=== PATIENT | female | born 1960 | race Caucasian/White ===

== ENCOUNTER 2017-02-16 21:02 | Emergency (ER) | payer BC ==
[~2017-02-16] VITALS: Ht 162.6 cm; Wt 63.5 kg
[~2017-02-16 21:02] MED LIST: ATV/2 PO; BUPRTAB51 PO; QUET1TAB91 PO; SUMA50TA15 PO
[2017-02-16 21:06] VITALS: BP 114/79; PULSE 97; TEMP 36.5; O2SAT 93; Ht 162.6 cm; Wt 63.5 kg
[2017-02-16] MEDS ORDERED: BSP/5 PO (21:22)
[2017-02-16] MEDS ORDERED: QUET5TAB PO (21:23)
[2017-02-16] MEDS ORDERED: FLX/5 PO (21:23)
[2017-02-16] MEDS ORDERED: WLLXL300 PO (21:23)
[2017-02-16] MEDS ORDERED: ATV2 PO (21:23)
[2017-02-16] MEDS ORDERED: OXYC-57 PO (21:23)
--- NOTE | 2017-02-16 21:43 | DIAGNOSTIC IMAGING REPORT ---
LEFT FOURTH FINGER RADIOGRAPHS CLINICAL HISTORY: Left fourth finger pain. COMPARISON: None FINDINGS: There is an acute displaced fracture of the base of the distal phalanx of the left fourth finger with palmar tilt of the distal component. There is intra-articular extension of fracture. No additional fractures are present. There is a ring on the fourth finger. IMPRESSION: Acute moderately displaced fracture of the base of the distal phalanx of the left fourth finger with intra-articular extension. Electronically signed by: Leonard Mei M.D. 02/16/2017 9:42 PM Dictated Date/Time: 02/16/2017 9:40 PM
[2017-02-16] MEDS ORDERED: XYLOCAINE 1%/SOD BICARB 20 ML VIAL INFIL ONE (21:55)
--- NOTE | 2017-02-16 22:39 | EMERGENCY ROOM VISIT NOTE ---
History First contact with patient: 21:16 Chief Complaint: FINGER PAIN Stated Complaint: FINGER PAIN, LEFT HAND, 4TH DIGIT History of Present Illness The patient is a 56 year old female who presents to the Emergency Room with complaints of an injury to her left ring finger well trying to move a box spring , and pinching her finger. The patient reports ability to move the joint, and rates her discomfort a 7 out of 10. The patient is [id number]. She denies any paresthesias or numbness of the tip of the left ring finger. Review of Systems 10 system review was performed and was negative except for pertinent positives and negatives as indicated in history of present illness Past Medical/Surgical History Medical Problems: (1) H/O unilateral nephrectomy Surgical Problems: (1) H/O: hysterectomy Family History Patient reports no known family medical history. Social History Smoking Status: Never Smoker Alcohol Use: none Drug Use: none Marital Status: Housing Status: lives with significant other Occupation Status: employed Current/Historical Medications Scheduled Bupropion HCl (Bupropion HCl Xl), 300 MG PO QPM Buspirone HCl (Buspirone HCl), 5 MG PO BID Quetiapine Fumarate (Seroquel), 50 MG PO QPM Scheduled PRN Cyclobenzaprine HCl (Cyclobenzaprine HCl), 5 MG PO TID PRN for Muscle Spasm Lorazepam (Lorazepam), 2 MG PO TID PRN for Anxiety Oxycodone/Acetaminophen 5MG/325MG (Percocet 5MG/325MG), 1 TABLET PO Q6H PRN for Pain Physical Exam Vital Signs Date Time Temp Pulse Resp B/P (MAP) Pulse Ox O2 Delivery O2 Flow Rate FiO2 02/16/17 21:06 36.5 97 18 114/79 93 Physical Exam CONSTITUTIONAL: Healthy and well nourished. Alert and oriented X 3 with positive affect. HEENT: Normocephalic, atraumatic. Pupils equal, round and reactive. NECK: Full active range of motion without discomfort. MUSCULOSKELETAL: Examination of the left fourth finger does not show any open wounds. The DIP is in a flexed deformity, and cannot be easily extended period she has no tenderness to palpation of the PIP joint. Capillary refill is less than 2 seconds. A ring is noted on the left ring finger. INTEGUMENTARY: No rash or other significant dermatologic conditions noted. NEUROLOGIC: Left fourth fingertip is sensory intact. Medical Decision & Procedures ER Provider Diagnostic Interpretation: My interpretation of left ring finger x-rays shows an avulsion/displaced fracture at the dorsal base of the distal phalanx, with intra-articular extension. No dislocation is appreciated. Radiologist report is as follows: LEFT FOURTH FINGER RADIOGRAPHS CLINICAL HISTORY: Left fourth finger pain. COMPARISON: None FINDINGS: There is an acute displaced fracture of the base of the distal phalanx of the left fourth finger with palmar tilt of the distal component. There is intra-articular extension of fracture. No additional fractures are present. There is a ring on the fourth finger. IMPRESSION: Acute moderately displaced fracture of the base of the distal phalanx of the left fourth finger with intra-articular extension. Procedure Patient provided verbal consent for reduction under digital block anesthesia because of intolerable discomfort. Using buffered 1% lidocaine without epinephrine, good digital block anesthesia was administered. After allowing adequate time for reduction, the fingertip/DIP joint was extended with a palpable pop in good alignment. The finger was splinted in a fully extended position. ED Course Patient history and physical exam were performed. Nurse's notes were reviewed. Vital signs were reviewed and were normal. X-rays of the left ring finger shows a fracture at the dorsal base of the distal phalanx. I was unable to straighten the finger without digital block anesthesia. After reduction, a metal splint was applied with the finger in full extension. The patient was encouraged to intermittently apply ice and elevate hand for swelling and pain. Ibuprofen and Tylenol for baseline pain relief. The patient reports that she does have Percocet at home for other medical conditions. The patient reports that she will follow-up with Dr. Chaparro for further management. The patient was happy with plan of care, voiced understanding of all discharge instructions , and denied any pain at the conclusion of my exam. Medical Decision Blood Pressure Screening Patient's blood pressure: Normal blood pressure Impression Primary Impression: Fracture of phalanx of left ring finger Departure Information Referrals Adam Dahl D.OBrennan (PCP) Patient Instructions My [facility] Problem Qualifiers Primary Impression: Fracture of phalanx of left ring finger Encounter type: initial encounter Fracture type: closed Phalanx: distal Fracture alignment: displaced Qualified Codes: S62.635A - Displaced fracture of distal phalanx of left ring finger, initial encounter for closed fracture
== END 2017-02-16 22:26 | disposition home or self-care (01) ==
LOC: C.EDB 21:03 → C.EDD 22:26
DX: S62.635A Displaced fracture of distal phalanx of left ring finger, initial encounter for closed fracture (principal); Z79.899 Other long term (current) drug therapy; W23.0XXA Caught, crushed, jammed, or pinched between moving objects, initial encounter

== ENCOUNTER 2017-07-22 10:36 | Emergency (ER) | payer BC, OTHER ==
[~2017-07-22] VITALS: Ht 162.6 cm; Wt 66.5 kg
[~2017-07-22 10:36] MED LIST changes: -ATV/2 PO; +ATV2 PO; +BSP/5 PO; -BUPRTAB51 PO; +FLX/5 PO; +OXYC-57 PO; -QUET1TAB91 PO; +QUET5TAB PO; -SUMA50TA15 PO; +WLLXL300 PO
[2017-07-22 10:41] VITALS: TEMP 36.3; Ht 162.6 cm; Wt 66.5 kg
[2017-07-22] MEDS ORDERED: ACETAMINOPHEN 325 MG TAB PO STA (11:04)
--- NOTE | 2017-07-22 11:31 | DIAGNOSTIC IMAGING REPORT ---
CT OF THE HEAD WITHOUT CONTRAST CLINICAL HISTORY: Headache following fall. COMPARISON STUDY: No previous studies for comparison. CT DOSE: 537.48 mGy.cm TECHNIQUE: Helical axial images of the head were obtained without IV contrast. Automated exposure control was utilized for the study. A dose lowering technique was utilized adhering to the principles of ALARA. FINDINGS: No acute intracranial hemorrhage, midline shift or mass effect is present. Ventricular system is normal. Basilar cisterns are patent. There are no extra-axial collections. Castaneda-white differentiation is maintained. There is no calvarial fracture. Visualized portions of the sinuses and mastoid air cells are clear. IMPRESSION: 1. No acute intracranial findings. 2. No calvarial fracture. Electronically signed by: Leonard Mei M.D. 07/22/2017 11:30 AM Dictated Date/Time: 07/22/2017 11:27 AM
[2017-07-22 11:44] VITALS: BP 131/81; PULSE 83; O2SAT 97
--- NOTE | 2017-07-22 15:50 | EMERGENCY ROOM VISIT NOTE ---
ED Visit Note First contact with patient: 10:44 Chief Complaint: I fell and hit the back of my head. History of Present Illness: Ms. Dempsey is a 57-year-old white female who ambulates into the ED complaining of a possible head injury. Patient reports approximately 2-3 hours ago she slipped while getting in her car and struck the back of her head on the ground. She reports before the fall she was not experiencing any lightheaded and dizziness, the time of the fall she did not have a loss of consciousness. Since the injury she reports she has been having a headache. She plates this in the occipital area. She describes it as a pressure and achy sensation. She rates her discomfort 5/10. Her pain is nonradiating. Her pain worsens with palpation of the scalp. She has not taken a medication for pain prior to arrival at the hospital. Associated with her pain she reports mild blurry vision, difficulty concentrating and nausea without vomiting. She denies dizziness, lightheadedness, hearing changes, difficulty speaking, difficulty swallowing, difficulty in voiding/coordinating by movements, neck pain, back pain, chest pain, shortness of breath, abdominal pain, extremity weakness/numbness/tingling. Review of Systems: As noted above in history of present illness. All body systems were reviewed and found to be negative as noted above. Past Medical History: Pancreatitis, terminal ileitis, migraine headaches, anxiety, depression, status post hysterectomy, unspecified shoulder surgery and left sided kidney donor. Current Medications: Medications Dose Route/Sig Max Daily Dose Days Date Category Percocet 5MG/325MG (Oxycodone/Acetaminophen) Tab 1 Tablet PO Q6H PRN 02/16/17 Reported Lorazepam 2 Mg Tab 2 Mg PO TID PRN 02/16/17 Reported Bupropion HCl Xl (Bupropion HCl) 300 Mg Tabcr 300 Mg PO QAM 02/16/17 Reported Buspirone HCl 5 Mg Tab 10 Mg PO BID 02/16/17 Reported Allergies to Medications: Patient denies. Social History: Patient is currently employed; she feels safe in her home environment; she denies tobacco and alcohol use. Physical Examination: Vital Signs: Date Time Temp Pulse Resp B/P (MAP) Pulse Ox O2 Delivery O2 Flow Rate FiO2 07/22/17 11:44 83 16 131/81 97 1/16/18 10:41 36.3 85 18 134/84 98 Room Air GENERAL: 57-year-old female in mild to moderate distress due to fall and symptoms, nontoxic-appearing, afebrile and hemodynamically stable. NEUROLOGICAL: Awake, alert and oriented to person, place and time. Answering questions appropriately and following commands. Normal gait. Good hand eye coordination. Cranial nerves II through XII grossly intact. Romberg test negative but unsteady. Pronator drift test negative. Good short-term and long- term recall. SKIN: Warm, dry and pink. Soft tissue contusion to the occipital scalp. HEENT: Atraumatic and normocephalic. Skull: No bony deformity, depressions. Mild tenderness in the area of her contusion. No raccoon's eyes or olivares signs. No drainage from the ears and air; no hemotympanum. Face: No bony tenderness, swelling or ecchymosis. PERRLA. EOMI without nystagmus. No malocclusion. No intraoral trauma. Airway patent. Speech normal. No lymphadenopathy. Trachea midline. No jugular venous distention. BACK: No tenderness over the bony cervical and thoracic spine. Full range of motion of the cervical spine. EXTREMITIES: Moves all extremities well on command and with purpose. All distal neurovascular statuses are intact and equal bilaterally. Upper Extremities: 4/5 muscle strength in all movements of the shoulder, elbows, forearms, wrists and hands. ED Course: Patient is assessed as noted above. Patient's medication list was reviewed. I did have a lengthy conversation about the risks and benefits of CT scan and patient requested a CT scan. Patient was given 650 mg of acetaminophen by mouth for pain. Head CT: Was reviewed by myself and read by the radiologist showing no acute intracranial findings or skull fractures. Patient was educated about today's findings and instructed on her treatment plan ; she verbalizes understanding and agreement with this plan. Clinical Impression: Closed head injury. Fall. Decision-Making: My differential diagnosis I considered syncope, arrhythmia, concussion, skull fracture, intercranial bleed and other causes. Disposition: Patient discharged home in stable condition; prior to departure she was reassessed and subjectively reported she was feeling better and rated her discomfort 2/10. Plan: Comfort measures were discussed with the patient including rest, no strenuous activity and the use of acetaminophen. Patient was encouraged to watch for signs of worsening head injury and avoid alcohol use. Patient was signed off of work for 2 days. Patient is encouraged to follow-up with her primary care provider for recheck in 2-3 days. Patient was encouraged return ED for any signs of worsening head injury or any new/concerning symptoms.
== END 2017-07-22 11:45 | disposition home or self-care (01) ==
LOC: C.EDB 10:38 → C.EDD 11:45
DX: S09.90XA Unspecified injury of head, initial encounter (principal); W19.XXXA Unspecified fall, initial encounter; K86.1 Other chronic pancreatitis; F41.8 Other specified anxiety disorders; Z90.710 Acquired absence of both cervix and uterus; Z98.890 Other specified postprocedural states

== ENCOUNTER 2017-07-24 07:20 | Emergency (ER) | payer OTHER ==
[~2017-07-24] VITALS: Ht 162.6 cm; Wt 65.0 kg
[~2017-07-24 07:20] MED LIST changes: -FLX/5 PO; -QUET5TAB PO
[2017-07-24 07:26] VITALS: TEMP 36.8; Ht 162.6 cm; Wt 65.0 kg
--- NOTE | 2017-07-24 07:47 | EMERGENCY ROOM VISIT NOTE ---
History Report prepared by Bel: Shannan Hamilton Under the Supervision of: Dr. Debbie Stone M.D. First contact with patient: 07:45 Chief Complaint: HEAD PAIN Stated Complaint: HEAD PAIN History of Present Illness The patient is a 57 year old female who presents to the Emergency Room with complaints of Past Medical & Surgical Medical Problems: (1) H/O unilateral nephrectomy Surgical Problems: (1) H/O: hysterectomy Family History Patient reports no known family medical history. Social History Smoking Status: Former Smoker Alcohol Use: none Drug Use: none Marital Status: Housing Status: lives with significant other Occupation Status: employed Current/Historical Medications Scheduled Bupropion HCl (Bupropion HCl Xl), 300 MG PO QAM Buspirone HCl (Buspirone HCl), 10 MG PO BID Scheduled PRN Lorazepam (Lorazepam), 2 MG PO TID PRN for Anxiety Oxycodone/Acetaminophen 5MG/325MG (Percocet 5MG/325MG), 1 TABLET PO Q6H PRN for Pain Allergies Coded Allergies: No Known Allergies (Unverified , 07/22/17) Physical Exam Vital Signs Date Time Temp Pulse Resp B/P (MAP) Pulse Ox O2 Delivery O2 Flow Rate FiO2 07/24/17 07:26 36.8 94 18 120/77 95 Room Air Departure Information Referrals Adam Dahl, D.OBrennan (PCP) Patient Instructions My [facility]
--- NOTE | 2017-07-24 08:16 | DIAGNOSTIC IMAGING REPORT ---
HEAD WITHOUT CONTRAST (CT) CT DOSE: 537.48 mGy.cm HISTORY: Headache. Mental status change. CHI, increasing NAYLOR, CT 2 days ago, r/o bleed TECHNIQUE: Multiaxial CT images of the head were performed without the use of intravenous contrast. A dose lowering technique was utilized adhering to the principles of ALARA. Comparison: 2017 Findings: The paranasal sinuses and mastoid air cells are clear. The calvarium and skull base are intact. The ventricles and sulci are within normal limits. There is no mass, hematoma, midline shift, or acute infarct. Impression: No acute intracranial abnormality. The above report was generated using voice recognition software. It may contain grammatical, syntax or spelling errors. Electronically signed by: Jeremiah Guerrier M.D. 07/24/2017 8:15 AM Dictated Date/Time: 07/24/2017 8:06 AM
[2017-07-24] MEDS ORDERED: KETOROLAC TROMETHAMINE 30 MG/ML VIAL IV STA (08:32)
[2017-07-24] MEDS ORDERED: ONDANSETRON INJ 2 MG/ML 2 ML VIAL IV STA (08:32)
[2017-07-24] MEDS ORDERED: ACET-1175 PO (08:34)
[2017-07-24] MEDS ORDERED: SODIUM CHLORIDE 0.9% 1000ML 1,000 ML IV ONE (08:45)
[2017-07-24] MEDS ORDERED: HYDROmorphone INJ 0.5 MG/0.5 ML SYR IV STA (09:50)
[2017-07-24 11:30] VITALS: BP 117/64; PULSE 85; O2SAT 94
--- NOTE | 2017-07-25 13:00 | EMERGENCY ROOM VISIT NOTE ---
ED Visit Note First contact with patient: 07:46 Chief Complaint: Head injury. History of Present Illness: Ms. Dempsey is a 57-year-old white female who ambulates into the ED complaining of a possible head injury. Should be noted I evaluated Ms. Dempsey 2 days ago following a fall and she was diagnosed with a closed head injury after a normal physical examination and CT of her head. She was discharged home and instructed to return to the ED for worsening head injury symptoms. Patient reports the day after her fall she was feeling slightly better in the morning but then late afternoon and evening and this morning she started feeling worse. She reports approximately 18 hours ago she started developing a throbbing headache. Since that time her pain has been constant. She places her discomfort globally. She rates her discomfort 7/10. She reports her pain worsens when she is closing her eyes. She has not identified any alleviating factors related to the pain. She reports initially she had taken some ibuprofen and then last night approximately 8 hours ago she had Percocet left from a orthopedic surgery and attempted to take one of the Percocets without relief of her discomfort. Associated with her pain she reports she is very light sensitive and sound sensitive, when she closed her eyes she feels like her body is moving forward even though she is lying still, she has been having blurry vision; she reports this has difficulty focusing on reading objects, and intermittently she reports she has been having some nausea but has not vomited. She denies ivan dizziness, decrease his in vision and hearing, difficulty speech, difficulty swallowing, difficulty ambulating or coordinating body movements, neck pain, back pain, chest pain, shortness of breath, abdominal pain , extremity weakness/numbness/tingling. Review of Systems: As noted above in history of present illness. All body systems were reviewed and found to be negative as noted above. Past Medical History: Pancreatitis, terminal ileitis, migraine headaches, anxiety, depression, status post hysterectomy, unspecified shoulder surgery and left sided kidney donor. Current Medications: As previously noted, lorazepam, buspirone. Allergies to Medications: Patient denies. Social History: She does currently employed; she feels safe in her home environment; she denies tobacco and alcohol use. Physical Examination: Vital Signs: Date Time Temp Pulse Resp B/P (MAP) Pulse Ox O2 Delivery O2 Flow Rate FiO2 07/24/17 11:30 85 117/64 94 07/24/17 09:58 75 16 117/62 95 07/24/17 07:26 36.8 94 18 120/77 95 Room Air GENERAL: 57-year-old female in mild to moderate distress due to pain, nontoxic- appearing, afebrile and hemodynamically stable. Found lying in a darkened room. NEUROLOGICAL: Awake, alert and oriented to person, place and time. Answering questions appropriately and following commands. Normal gait. Good hand eye coordination. No focal motor sensory deficits. Radial nerves II through XII grossly intact. Romberg test negative. Pronator drift test negative. Short- term and long-term recall. Normal rapid alternate movements of the hands. Normal heel mayers test. Able to spell and count backwards. SKIN: Warm, dry and pink. No soft tissue trauma noted. HEENT: Atraumatic and normocephalic. Skull: No bony deformity, bony tenderness , swelling, depressions or ecchymosis. No raccoon's eyes or olivares signs. No drainage in the ears of the nostril; no hemotympanum. Face: No bony deformity, bony crepitus, swelling or ecchymosis. PERRLA. EOMI thousand Oumar Ms. Funduscopic examination deferred due to light sensitivity. Sclera white and conjunctiva pink. No malocclusion. Speech is normal and clear. Trachea midline. No jugular venous distention. BACK: No tenderness over the bony cervical, thoracic and lumbar spine. Range of motion of the cervical spine. THORAX: Lungs sounds are clear to auscultation and equal bilaterally with symmetrical chest wall. No crepitus, tenderness, subcutaneous air or deformities noted. ABDOMEN: Flat, soft and nontender. Positive bowel sounds in all quadrants. No guarding, rigidity or organomegaly. EXTREMITIES: Moves all extremities well on command and with purpose. All distal neurovascular statuses are intact and equal bilaterally. ED Course: Patient is assessed as noted above. Patient's medication list was reviewed. Head CT: As reviewed by myself and read by the radiologist and shows no acute intracranial injuries or skull fractures. This was compared to previous and no acute changes were noted. Patient was hydrated with normal saline and initially received 30 mg of Toradol IV and 4 mg of Zofran IV. After multiple reassessments she had no relief of her discomfort shows she was given 0.5 mg of the Dilaudid IV. Patient's case was reviewed with Dr. Stone; we agreed on diagnostic approach, treatment, disposition and plan. Patient was educated about today's findings and instructed on her treatment plan ; she verbalized understanding and agreement with this plan. Clinical Impression: Concussion. Decision-Making: Initially my differential diagnosis I considered intracranial bleed, skull fracture, mass effect, concussion and other causes. Disposition: Patient discharged home in stable condition; prior to departure she was reassessed and subjectively reported she was pain-free. She was In the emergency department slightly longer time waiting for a ride home from her boyfriend. Plan: Patient was encouraged to continue her current medications as prescribed per Patient was encouraged to alternate ibuprofen and acetaminophen every 3 hours for persistent pain. Patient reports she had an appointment with her family doctor tomorrow for recheck encouraged her to keep this appointment. Patient was encouraged on worsening signs of head injury and return emergency department if those would occur or she has any new/concerning symptoms.
== END 2017-07-24 11:30 | disposition home or self-care (01) ==
LOC: C.EDB 07:21
DX: S06.0X9A Concussion with loss of consciousness of unspecified duration, initial encounter (principal); W19.XXXA Unspecified fall, initial encounter; F41.9 Anxiety disorder, unspecified